=== PATIENT | female | born 1955 | race Caucasian/White ===

== ENCOUNTER 2021-02-23 13:09 | Emergency (ER) | payer BC ==
[~2021-02-23 13:09] MED LIST: DRISDOL50000 UNIT PO; EFFEXOR XR 75 M75 MG PO; ELIQUIS5 MG PO; HYDROCHLOROTHIA25 MG PO; METOPROLOL SUCC50 MG PO; MULTAQ400 MG PO; PROTONIX40 MG PO; TOPROL XL50 MG PO; VITAMIN B-12500 MCG PO
[2021-02-23 14:32] LABS: HEMOGLOBIN 11.7 gm/dl (12.3-15.3); RED BLOOD COUNT 3.77 M/UL (4.00-5.10); WHITE BLOOD COUNT 6.6 K/UL (4.5-11.0)
[2021-02-23 14:52] LABS: BUN/CREATININE RATIO 17 (0-10)
== END 2021-02-23 15:09 | disposition home or self-care (01) ==
LOC: ER1 13:09
PROVIDERS: Otolaryngology
DX: I47.1 Supraventricular tachycardia (principal)
CPT/HCPCS: 80048; 85025; 93005; 99283; J0153

== ENCOUNTER → 2021-03-06 | Outpatient (CLI) | payer BC | LOC: HEART 5 15:00 | DX: I48.91 Unspecified atrial fibrillation (principal) ==

== ENCOUNTER → 2021-05-15 | Outpatient (CLI) | payer BC | LOC: EXRD 11:35 | DX: R60.0 Localized edema (principal); R91.8 Other nonspecific abnormal finding of lung field | CPT/HCPCS: 71046; 93970 ==

== ENCOUNTER → 2021-05-28 | Outpatient (CLI) | payer BC | LOC: CT 08:45 | DX: R91.1 Solitary pulmonary nodule (principal) | CPT/HCPCS: 71270; Q9967 ==

== ENCOUNTER → 2021-08-23 | Outpatient (CLI) | payer BC | LOC: HEART 5 08-16 08:00 | DX: Z01.810 Encounter for preprocedural cardiovascular examination (principal); I48.91 Unspecified atrial fibrillation; R94.39 Abnormal result of other cardiovascular function study | CPT/HCPCS: 78452; A9502; J2785 ==